=== PATIENT | female | born 2000 | race Hispanic/Latino ===

== ENCOUNTER 2024-01-20 08:19 | Emergency (ER) | payer OTHER | END 2024-01-20 09:23 | disposition home or self-care (01) | LOC: BURERS 08:19 | DX: S46.912A Strain of unspecified muscle, fascia and tendon at shoulder and upper arm level, left arm, initial encounter (principal); V49.9XXA Car occupant (driver) (passenger) injured in unspecified traffic accident, initial encounter ==

== ENCOUNTER 2024-01-26 12:28 | Emergency (ER) | payer OTHER ==
[2024-01-26] MEDS ORDERED: Cyclobenzaprine 10 MG TAB ONE (12:49)
== END 2024-01-26 13:00 | disposition home or self-care (01) ==
LOC: BURERS 12:28
DX: S93.402A Sprain of unspecified ligament of left ankle, initial encounter (principal); S33.5XXA Sprain of ligaments of lumbar spine, initial encounter; V89.2XXA Person injured in unspecified motor-vehicle accident, traffic, initial encounter
CPT/HCPCS: 99283